=== PATIENT | male | born 1995 | race African-American/Black ===

== ENCOUNTER 2017-05-22 09:20 | Emergency (ER) | payer SELFPAY ==
[2017-05-22] MEDS ORDERED: Ondansetron INJ* 2 MG/ML VIAL IV ONE ×2 (09:43→11:18)
[2017-05-22] MEDS: NS 0.9% 1000 ML* 2,000 ML IV ONE ×2 (10:03→10:43)
[2017-05-22 11:30] VITALS: BP 132/80
--- NOTE | 2017-05-22 11:52 | UC ---
Renaldo Kumar Aidan, scribed for Bridger Boateng MD on 05/22/17 at 0959 . FLU HPI - HPI Summary HPI Summary: 21 y/o male presents to the Urgent Care with a complaint of acute, moderate episodes of vomiting with constant associated nausea. Episodes of vomiting began at 2100 last night. Other associated symptoms include severe (reported 10/ 10) episodes of diffuse abdominal pain, frequent episodes of diarrhea, rhinorrhea, and chills. Sitting up causes lightheadedness. He has been unable to eat regularly due to the nausea. Pt denies anyone else being sick at home. - History of Current Complaint Chief Complaint: UCAbdominalPain Stated Complaint: VOMITING Time Seen by Provider: 05/22/17 09:31 Hx Obtained From: Patient, Family/Charter Driver - sister Onset/Duration: Sudden Onset, Lasting Hours, Still Present Severity Currently: Moderate Severity Initially: Severe Pain Intensity: 10 Pain Scale Used: 0-10 Numeric Associated Signs & Symptoms: Positive: Nasal Congestion - runny nose, Vomiting, Diarrhea. Negative: Negative - abdominal pain, chills - Allergy/Home Medications Allergies/Adverse Reactions: Allergies Allergy/AdvReac Type Severity Reaction Status Date / Time No Known Allergies Allergy Verified 05/22/17 09:23 PMH/Surg Hx/FS Hx/Imm Hx - Surgical History Surgical History: None - Family History Known Family History: Positive: Hypertension - Social History Occupation: Unemployed Lives: With Family Alcohol Use: Occasionally Substance Use Type: Marijuana Smoking Status (MU): Never Smoked Tobacco Review of Systems Constitutional: Fever, Chills Skin: Negative Eyes: Negative ENT: Nasal Discharge - runny nose Respiratory: Negative Cardiovascular: Negative Gastrointestinal: Abdominal Pain, Vomiting, Diarrhea, Nausea Genitourinary: Negative Motor: Negative Neurovascular: Negative Musculoskeletal: Negative Neurological: Negative All Other Systems Reviewed And Are Negative: Yes Physical Exam Triage Information Reviewed: Yes Appearance: Ill-Appearing - niwx-pg-prdstemyly ill appearing Vital Signs: Initial Vital Signs Temp 99.3 F 05/22/17 09:26 Pulse 73 05/22/17 09:26 Resp 19 05/22/17 09:26 BP 135/78 05/22/17 09:26 Pulse Ox 99 05/22/17 09:26 Vital Signs Reviewed: Yes Eye Exam: Normal Eyes: Positive: Other: - PERRL, EOMI ENT Exam: Normal Neck exam: Normal Neck: Positive: Supple, Nontender Respiratory Exam: Normal Respiratory: Positive: Lungs clear - CTA, Other: - breath sounds present Cardiovascular Exam: Normal Cardiovascular: Positive: RRR Abdominal Exam: Normal Abdomen Description: Positive: Soft, Other: - no rebound. Negative: Nontender - mildd diffuse abdominal tenderness Bowel Sounds: Positive: Hypoactive Musculoskeletal Exam: Normal Musculoskeletal: Positive: Strength Intact, ROM Intact Neurological Exam: Normal Neurological: Positive: Alert Psychological Exam: Normal Psychological: Positive: Age Appropriate Behavior Skin Exam: Normal Re-Evaluation - Re-Evaluation First Eval Re-Evaluation Time: 11:01 - The patient was still feeling nauseated. He will be given more IV Zofran. Change: Unchanged Second Eval Re-Evaluation Time: 11:36 - After more Zofran, the patient claioms to be 90% better. On examination, he had some epigastric tenderness but no lower abdominal tenderness. Change: Improved Flu Course/Dx - Course Course Of Treatment: 21 y/o male presents with frequent episodes of vomiting and diarrhea that began at 2100 last night. Associated symptoms include chills, abdominal pain, nausea, and rhinorrhea. MEDICATIONS REVIEWED. IMPROVED IN ED AFTER 2 LITERS NS AND ZOFRAN 4MG X 2. NO FOCAL ABDOMINAL TENDERNESS/PERITONEAL SIGNS AT DISCHARGE REEVAL. PATIENT DECLINED TRANSFER TO ED,WISHES TO GO HOME. - Differential Dx/Diagnosis Provider Diagnoses: DEHYDRATION, NAUSEA AND VOMITING, ABDOMINAL PAIN Discharge - Discharge Plan Condition: Stable Disposition: HOME Prescriptions: Ondansetron ODT TAB* [Zofran 4 MG Odt TAB*] 4 mg PO Q6H PRN #10 tab.odt PRN Reason: Nausea Patient Education Materials: Dehydration (ED), Acute Nausea and Vomiting (ED), Abdominal Pain (ED) Referrals: [facility] [Outside] Additional Instructions: FOLLOW UP WITH YOUR DOCTOR. RETURN TO THE EMERGENCY DEPARTMENT FOR ANY WORSENING OF YOUR CONDITION; PAIN, FEVER, VOMITING, YOU FEEL ILL OR QUESTIONS OR CONCERNS. The documentation as recorded by the Renaldo quintanilla Aidan accurately reflects the service I personally performed and the decisions made by me, Bridger Boateng MD.
== END 2017-05-22 11:58 | disposition home or self-care (01) ==
LOC: UCEAST 09:20
DX: E86.0 Dehydration (principal); R11.2 Nausea with vomiting, unspecified; R10.84 Generalized abdominal pain
CPT/HCPCS: 96361; 96374; 96376; 99202; G0463; J2405

== ENCOUNTER 2017-05-22 17:00 | Emergency (ER) | payer SELFPAY ==
[2017-05-22] MEDS ORDERED: NS 0.9% 1000 ML* 1,000 ML IV ONE ×2 (17:05→18:56)
[2017-05-22] MEDS ORDERED: LORazepam INJ* 2 MG/ML 1 ML VIAL IV PUSH ONE (17:12)
[2017-05-22] MEDS ORDERED: Ondansetron INJ* 2 MG/ML VIAL IV ONE (17:12)
[2017-05-22] MEDS ORDERED: Al Hydrox/Mg Hydrox/Simet LIQ* 30 ML UDC PO ONE (17:13)
[2017-05-22] MEDS ORDERED: Lidocaine 2% VISCOUS* 15 ML UDC PO ONE (17:13)
[2017-05-22 17:48] LABS: Hematocrit 43 % (42-52); Hemoglobin 14.4 g/dl (14.0-18.0); Mean Corpuscular HGB Conc 33 g/dl (31-36); Mean Corpuscular Hemoglobin 31 pg (27-31); Mean Corpuscular Volume 92 fL (80-94); Mean Platelet Volume 9 um3 (7.4-10.4); Red Blood Count 4.68 10^6/ul (4.0-5.4); Red Cell Distribution Width 13 % (10.5-15); White Blood Count 14.5 10^3/ul (3.5-10.8)
[2017-05-22 18:03] LABS: Albumin 4.7 g/dL (3.2-5.2); BUN/Creatinine Ratio 11.5 (8-20); Calcium 9.8 mg/dL (8.6-10.3); EGFR African American 164.9 (>60); EGFR Non-African American 128.2 (>60); Globulin 3.2 g/dL (2-4); Total Bilirubin 0.8 mg/dL (0.2-1.0); Total Protein 7.9 g/dL (6.4-8.9)
[2017-05-22 18:06] LABS: Potassium 3.7 mmol/L (3.5-5.0)
[2017-05-22 19:28] LABS: Urine Bilirubin Negative (Negative); Urine Glucose Negative (Negative); Urine Nitrite Negative (Negative)
[2017-05-22] MEDS ORDERED: Ondansetron ODT TAB* 4 MG PO ONE (20:58)
[2017-05-22] MEDS ORDERED: Metoclopramide TAB* 10 MG PO ONE (21:04)
[2017-05-22] MEDS ORDERED: Metoclopramide IV* 5 MG/ML 2 ML VIAL IV SLOW PU ONE (21:09)
[2017-05-22] MEDS ORDERED: Metoclopramide IV* 5 MG/ML 2 ML VIAL ONE (21:10)
[2017-05-22 23:43] VITALS: BP 136/82
--- NOTE | 2017-06-03 23:29 | ED ---
Patricia Kuamr Rebecca, scribed for Jose Miguel Maria MD on 05/22/17 at 1710 . Abdominal Pain/Male - HPI Summary HPI Summary: Pt is a 21 y/o M BIBA who presents to ED c/o abd pain. Pain began last night and has been constant since onset. Pain is discrete to the epigastric region without radiation and currently severe. Sx aggravated and alleviated by nothing. He additionally c/o N/V/D. Diarrhea occurred last night and is currently resolved. Pt began vomiting last night at 2100. Denies dizziness and lightheadedness. He was evaluated by [facility] earlier today, during which the pt reports he received fluids and Zofran and was D/C after being advised to come to the ED via ambulance. At the time, the pt refused, went home and his vomiting restarted upon coming home. No recent sick contact. No PMHx abdominal problems such as IBS. - History of Current Complaint Chief Complaint: EDGeneral Stated Complaint: VOMITING Time Seen by Provider: 05/22/17 17:06 Hx Obtained From: Patient Onset/Duration: Sudden Onset, Still Present Timing: Constant Severity Currently: Severe Location: Epigastric Radiates: No Aggravating Factor(s): Nothing Alleviating Factor(s): Nothing Associated Signs And Symptoms: Positive: Nausea, Vomiting, Diarrhea, Other - Denies dizziness, lightheadedness - Allergies/Home Medications Allergies/Adverse Reactions: Allergies Allergy/AdvReac Type Severity Reaction Status Date / Time No Known Allergies Allergy Verified 05/22/17 09:23 PMH/Surg Hx/FS Hx/Imm Hx Previously Healthy: Yes Endocrine/Hematology History: Denies: Hx Diabetes GI History: Denies: Hx Irritable Bowel Infectious Disease History: Denies: Hx Clostridium Difficile, Hx Hepatitis, Hx Human Immunodeficiency Virus (HIV), Hx of Known/Suspected MRSA, Hx Shingles, Hx Tuberculosis, Hx Known/ Suspected VRE, Hx Known/Suspected VRSA, History Other Infectious Disease, Traveled Outside the [place] in Last 30 Days - Family History Known Family History: Positive: Hypertension - Social History Alcohol Use: Occasionally Substance Use Type: Reports: Marijuana Smoking Status (MU): Never Smoked Tobacco Review of Systems Negative: Fever, Chills Negative: Erythema Negative: Sore Throat Negative: Chest Pain Negative: Shortness Of Breath, Cough Positive: Abdominal Pain - epigastric, Vomiting, Diarrhea - last night - resolved, Nausea Negative: dysuria, hematuria Negative: Myalgia, Edema Negative: Rash Neurological: Other - Deniez dizziness and lightheadedness All Other Systems Reviewed And Are Negative: Yes Physical Exam - Summary Physical Exam Summary: Constitutional: Well-developed, Well-nourished, Alert, Retching. Skin: Warm, Dry HENT: Normocephalic; Atraumatic Eyes: Conjunctiva normal Neck: Musculoskeletal ROM normal neck. (-) JVD, (-) Stridor, (-) Tracheal deviation Cardio: Rhythm regular, rate normal, Heart sounds normal; Intact distal pulses; The pedal pulses are 2+ and symmetric. Radial pulses are 2+ and symmetric. (-) Murmur Pulmonary/Chest wall: Effort normal. (-) Respiratory distress, (-) Wheezes, (-) Rales Abd: Soft, (-) Distension, (-) Guarding, (-) Rebound. Epigastric tenderness. Musculoskeletal: (-) Edema Lymph: (-) Cervical adenopathy Neuro: Alert, Oriented x3 Psych: Mood and affect Normal Triage Information Reviewed: Yes Vital Signs Reviewed: Yes Diagnostics - Laboratory Result Diagrams: 05/22/17 17:39 05/22/17 17:39 Lab Statement: Any lab studies that have been ordered have been reviewed, and results considered in the medical decision making process. Re-Evaluation - Re-Evaluation First Eval Re-Evaluation Time: 18:45 Change: Improved Comment: Reports nausea and pain have resolved. Repeat abd exam indicates tenderness upon epigastric region w/o rebounding. Lower quadrants not tender to palpation. Hiccups have resolved. Pt has not provided urine sample yet, however girlfriend will assist with this when pt is awake. Another bag of saline ordered due to elevated HR. Pt is currently sleeping. Second Eval Re-Evaluation Time: 21:10 Change: Worse Comment: Gave PO challenge and the pt vomited. Will give him some PO Reglan. Abdomen is nontender. Third Eval Re-Evaluation Time: 23:15 Change: Improved Comment: Pt is able to tolerate PO with the Reglan having improved sx. Pt reports he does not have insurance and his girlfriend is taking care of it. Abdominal Pain Fem Course/Dx - Course Assessment/Plan: Pt is a 21 y/o M who presents to ED c/o constant, severe epigastric abd pain since last night. He additionally c/o N/V/D. Diarrhea occurred last night and is currently resolved. Pt began vomiting last night at 2100. Denies dizziness and lightheadedness. He was evaluated by [facility] earlier today, during which the pt reports he received fluids and zofran and was D/C after being advised to come to the ED via ambulance. At the time, the pt refused , went home and his vomiting restarted upon coming home. No recent sick contact. No PMHx abdominal problems such as IBS. Given his V/D, this is most likely gastroenteritis. He may require a secondary agent for antiemesis. Waiting on labs. WBC 14.5. Pt will be D/C to home with Dx of gastroenteritis with a follow up with PCP and Rx for Zofran and Reglan. Pt medications reviewed this visit. - Diagnoses Provider Diagnoses: Gastroenteritis Discharge - Discharge Plan Condition: Stable Disposition: HOME Prescriptions: Metoclopramide TAB* [Reglan TAB*] 10 mg PO Q8H #6 tab Ondansetron ODT TAB* [Zofran 4 MG Odt TAB*] 4 mg PO Q6H PRN #10 tab.odt PRN Reason: Nausea Patient Education Materials: Gastroenteritis (ED) Referrals: [facility] [place] [facility]FERR[facility] [Outside] - 3 Days Additional Instructions: RETURN TO THE EMERGENCY DEPARTMENT FOR CHANGING OR WORSENING SYMPTOMS The documentation as recorded by the Patricia quintanilla Rebecca accurately reflects the service I personally performed and the decisions made by , Jose Miguel Maria MD.
== END 2017-05-22 23:37 | disposition home or self-care (01) ==
LOC: ED 17:00
DX: K52.9 Noninfective gastroenteritis and colitis, unspecified (principal)
CPT/HCPCS: 36415; 80053; 81003; 83605; 83690; 85025; 96361; 96374; 96375; 99283; A9270-GY; J2060; J2405

== ENCOUNTER 2017-05-25 03:51 | Emergency (ER) | payer SELFPAY ==
[2017-05-25 04:00] VITALS: BP 119/90
[2017-05-25] MEDS ORDERED: chlorproMAZINE INJ* 25 MG/ML 2 ML (50 MG) IM ONE (04:07)
--- NOTE | 2017-05-25 04:36 | ED ---
Megan Kumar Thomas, scribed for Joseph Felipe MD on 05/25/17 at 0355 . Abdominal Pain/Male - HPI Summary HPI Summary: The pt is a 21 y/o M presenting to the ED c/o hiccups and abd pain that began 4 days ago. He rates his pain 7/10. He additionally c/o vomiting and CP secondary to hiccups. He was diagnosed with gastritis 4 days ago at [facility] and prescribed Zofran. He does not have a PCP. - History of Current Complaint Chief Complaint: EDAbdPain Stated Complaint: CHEST PAIN/SOB Hx Obtained From: Patient Onset/Duration: Lasting Days - 4 days ago Timing: Constant, Lasting Days - onset 4 days ago Severity Currently: Moderate Pain Intensity: 7 Pain Scale Used: 0-10 Numeric Aggravating Factor(s): Nothing Alleviating Factor(s): Nothing Associated Signs And Symptoms: Positive: Vomiting, Other - POS: CP secondary to hiccuping - Allergies/Home Medications Allergies/Adverse Reactions: Allergies Allergy/AdvReac Type Severity Reaction Status Date / Time No Known Allergies Allergy Verified 05/25/17 03:58 PMH/Surg Hx/FS Hx/Imm Hx Previously Healthy: Yes Cardiovascular History: Denies: Hx Myocardial Infarction Sensory History: Denies: Hx Legally Blind Infectious Disease History: Denies: Hx Clostridium Difficile, Hx Hepatitis, Hx Human Immunodeficiency Virus (HIV), Hx of Known/Suspected MRSA, Hx Shingles, Hx Tuberculosis, Hx Known/ Suspected VRE, Hx Known/Suspected VRSA, History Other Infectious Disease - Family History Known Family History: Positive: Hypertension - Social History Alcohol Use: Occasionally Substance Use Type: Reports: Marijuana Smoking Status (MU): Never Smoked Tobacco Review of Systems Constitutional: Negative Eyes: Negative ENT: Negative Positive: Chest Pain - secondary to hiccuping Positive: Other - POS: hiccups Positive: Abdominal Pain Genitourinary: Negative Musculoskeletal: Negative Skin: Negative Neurological: Negative Psychological: Normal All Other Systems Reviewed And Are Negative: Yes Physical Exam Triage Information Reviewed: Yes Vital Signs On Initial Exam: Initial Vitals Temp Pulse Resp BP Pulse Ox 98.7 F 109 18 119/90 100 05/25/17 03:53 05/25/17 03:53 05/25/17 03:53 05/25/17 03:53 05/25/17 03:53 Vital Signs Reviewed: Yes Appearance: Positive: No Pain Distress, Thin Skin: Positive: Warm Head/Face: Positive: Normal Head/Face Inspection Eyes: Positive: OLIVIA ENT: Positive: Hearing grossly normal Neck: Positive: Supple Respiratory/Lung Sounds: Positive: Breath Sounds Present Cardiovascular: Positive: RRR Abdomen Description: Positive: Nontender, Soft Bowel Sounds: Positive: Present Musculoskeletal: Positive: Strength/ROM Intact Neurological: Positive: Alert, Oriented to Person Place, Time Psychiatric: Positive: Affect/Mood Appropriate Diagnostics - Vital Signs Vital Signs Temp Pulse Resp BP Pulse Ox 05/25/17 03:53 98.7 F 109 18 119/90 100 - Laboratory Lab Statement: Any lab studies that have been ordered have been reviewed, and results considered in the medical decision making process. Re-Evaluation - Re-Evaluation Second Eval Re-Evaluation Time: 04:35 Change: Improved Abdominal Pain Fem Course/Dx - Diagnoses Provider Diagnoses: Hiccups Discharge - Discharge Plan Condition: Stable Disposition: HOME Patient Education Materials: Evacups (ED) Additional Instructions: Follow up with your primary care physician. The documentation as recorded by the Megan quintanilla Thomas accurately reflects the service I personally performed and the decisions made by Destinee sampson David, MD.
== END 2017-05-25 04:49 | disposition home or self-care (01) ==
LOC: ED 03:51
DX: R06.6 Hiccough (principal); R10.9 Unspecified abdominal pain; R11.10 Vomiting, unspecified; R07.9 Chest pain, unspecified
CPT/HCPCS: 96372; 99282

== ENCOUNTER 2017-05-25 05:57 | Emergency (ER) | payer SELFPAY ==
[2017-05-25] MEDS ORDERED: NS 0.9% 1000 ML*IV.FLUID IV ONE (06:48)
[2017-05-25] MEDS ORDERED: NS 0.9% 1000 ML* 1,000 ML IV ONE (06:48)
[2017-05-25 06:52] LABS: Hematocrit 44 % (42-52); Mean Corpuscular HGB Conc 34 g/dl (31-36); Mean Corpuscular Hemoglobin 31 pg (27-31); Mean Corpuscular Volume 90 fL (80-94); Mean Platelet Volume 8 um3 (7.4-10.4); Red Blood Count 4.84 10^6/ul (4.0-5.4); Red Cell Distribution Width 12 % (10.5-15); White Blood Count 8.8 10^3/ul (3.5-10.8)
[2017-05-25 07:13] LABS: Albumin 4.5 g/dL (3.2-5.2); BUN/Creatinine Ratio 20.5 (8-20); Calcium 9.4 mg/dL (8.6-10.3); EGFR African American 143.5 (>60); EGFR Non-African American 111.6 (>60); Globulin 3.1 g/dL (2-4); Magnesium 2.3 mg/dL (1.9-2.7); Total Bilirubin 1.5 mg/dL (0.2-1.0); Total Protein 7.6 g/dL (6.4-8.9)
[2017-05-25 07:16] LABS: Troponin I 0.03 ng/mL (<0.04)
[2017-05-25 07:30] LABS: Potassium 2.8 mmol/L (3.5-5.0)
[2017-05-25] MEDS ORDERED: KCL 20 MEQ/100 ML IVPREMIX* 20 MEQ/100 ML BAG IV ONE (07:32)
[2017-05-25 07:40] LABS: TSH (Thyroid Stimulating Horm) 0.57 mcIU/mL (0.34-5.60)
[2017-05-25] MEDS: NS 0.9% 1000 ML* 2,000 ML IV ONE ×2 (07:44→09:27)
[2017-05-25 07:45] LABS: Urine Bacteria Absent (Absent); Urine Bilirubin 1+ (Negative); Urine Glucose Negative (Negative); Urine Nitrite Negative (Negative)
--- NOTE | 2017-05-25 08:43 | RAD ---
INDICATION: Syncopal episode after exiting a taxi COMPARISON: None. TECHNIQUE: Contiguous axial sections of the brain were obtained from the skull base to the vertex without contrast. FINDINGS: The ventricles, cisterns and sulci are within normal limits. The barrera-white matter differentiation is adequately maintained and there is no sulcal effacement. No significant focal abnormality or mass effect is present. There is no evidence for intracranial hemorrhage. No significant focal osseous abnormality is present. There is mild mucosal thickening of the anterior ethmoid air cells. There is complete opacification of the left frontal sinus. The remaining visualized sinuses are clear. The mastoid air cells are well-aerated. IMPRESSION: 1. No CT evidence of acute traumatic intracranial injury. 2. Paranasal sinus mucosal disease as described above.
--- NOTE | 2017-05-25 11:31 | ED ---
Franca Kumar Alfonso, scribed for Bridger Boateng MD on 05/25/17 at 0722 . Syncope/Near Syncope - HPI Summary HPI Summary: This patient is a 21 y/o male BIBA to [facility] for syncope at 0530 today. He reports "I remember saying I was getting out the cab but not getting out of the cab," "I just fainted," and he is "feeling better now." The female accompanying the patient reports "he hit the right side of his head when he fell onto the concrete." Symptoms aggravated by recent illness and alleviated by spontaneous resolution. He reports LOC, N/V, dehydration, hiccupping, and dry mouth. He denies abdominal pain and headache. He was discharged from [facility] at approximately 0400 today with a provider diagnosis of hiccups. He was discharged from [facility] 3 days ago with a provider diagnosis of dehydration, N/V, and abdominal pain. - History Of Current Complaint Chief Complaint: EDSyncope Time Seen by Provider: 05/25/17 07:18 Hx Obtained From: Patient, Family/Data Collection Technician - A female Onset/Duration: Sudden Onset, Lasting Hours - 0530 today, Resolved Timing: Constant - One episode Context: Witnessed - By the female, Loss Of Consciousness Activity At Onset: Other - Getting out of a cab Associated Head Trauma: Yes Aggravating Factor(s): Other - Recent illness Alleviating Factor(s): Spontaneous Resolution Associated Signs And Symptoms: Head Trauma (Recent) - "he hit the right side of his head when he fell onto the concrete.", Vomiting, Other - Positive nausea, dehydration, hiccupping, and dry mouth - Allergies/Home Medications Allergies/Adverse Reactions: Allergies Allergy/AdvReac Type Severity Reaction Status Date / Time No Known Allergies Allergy Verified 05/25/17 03:58 PMH/Surg Hx/FS Hx/Imm Hx Cardiovascular History: Denies: Hx Myocardial Infarction Sensory History: Denies: Hx Legally Blind, Hx Deafness Opthamlomology History: Denies: Hx Legally Blind - Immunization History Date of Tetanus Vaccine: utd Date of Influenza Vaccine: none Infectious Disease History: Denies: Hx Clostridium Difficile, Hx Hepatitis, Hx Human Immunodeficiency Virus (HIV), Hx of Known/Suspected MRSA, Hx Shingles, Hx Tuberculosis, Hx Known/ Suspected VRE, Hx Known/Suspected VRSA, History Other Infectious Disease, Traveled Outside the [place] in Last 30 Days - Family History Known Family History: Positive: Hypertension - Social History Alcohol Use: Occasionally Substance Use Type: Reports: Marijuana Substance Use Comment - Amount & Last Used: 4 days ago Smoking Status (MU): Never Smoked Tobacco Review of Systems Positive: Other - Positive dehydration. Negative: Fever Positive: Other - Positive dry mouth and hiccupping Positive: Vomiting, Nausea. Negative: Abdominal Pain Neurological: Other - Positive LOC and "he hit the right side of his head when he fell onto the concrete." Positive: Syncope. Negative: Headache All Other Systems Reviewed And Are Negative: Yes Physical Exam Triage Information Reviewed: Yes Vital Signs On Initial Exam: Initial Vitals Temp Pulse Resp BP Pulse Ox 97.9 F 91 16 104/55 96 05/25/17 06:08 05/25/17 06:08 05/25/17 06:08 05/25/17 06:08 05/25/17 06:08 Vital Signs Reviewed: Yes Appearance: Positive: Well-Appearing, No Pain Distress Skin: Positive: Warm, Skin Color Reflects Adequate Perfusion, Dry Head/Face: Positive: Normal Head/Face Inspection Eyes: Positive: EOMI, OLIVIA ENT: Positive: Other - Dry oral mucosa Neck: Positive: Supple, Nontender Respiratory/Lung Sounds: Positive: Clear to Auscultation, Breath Sounds Present Cardiovascular: Positive: RRR Abdomen Description: Positive: Nontender, Soft Bowel Sounds: Positive: Present Musculoskeletal: Positive: Normal, Strength/ROM Intact Neurological: Positive: Normal, Sensory/Motor Intact, Alert, Oriented to Person Place, Time Psychiatric: Positive: Affect/Mood Appropriate - Kory Coma Scale Best Eye Response: 4 - Spontaneous Best Motor Response: 6 - Obeys Commands Best Verbal Response: 5 - Oriented Coma Scale Total: 15 Diagnostics - Vital Signs Vital Signs Temp Pulse Resp BP Pulse Ox 05/25/17 06:54 17 05/25/17 06:08 97.9 F 91 16 104/55 96 - Laboratory Lab Results: Lab Results 05/25/17 05/25/17 05/25/17 Range/Units 06:40 06:40 06:40 WBC 8.8 (3.5-10.8) 10^3/ul RBC 4.84 (4.0-5.4) 10^6/ul Hgb 15.0 (14.0-18.0) g/dl Hct 44 (42-52) % MCV 90 (80-94) fL MCH 31 (27-31) pg MCHC 34 (31-36) g/dl RDW 12 (10.5-15) % Plt Count 227 (150-450) 10^3/ul MPV 8 (7.4-10.4) um3 Neut % (Auto) 71.8 (38-83) % Lymph % (Auto) 14.8 L (25-47) % [place] % (Auto) 13.1 H (1-9) % Eos % (Auto) 0.1 (0-6) % Baso % (Auto) 0.2 (0-2) % Absolute Neuts (auto) 6.3 (1.5-7.7) 10^3/ul Absolute Lymphs (auto) 1.3 (1.0-4.8) 10^3/ul Absolute Monos (auto) 1.1 H (0-0.8) 10^3/ul Absolute Eos (auto) 0 (0-0.6) 10^3/ul Absolute Basos (auto) 0 (0-0.2) 10^3/ul Absolute Nucleated RBC 0.02 10^3/ul Nucleated RBC % 0.2 Sodium 132 L (133-145) mmol/L Potassium Pending Chloride 93 L (101-111) mmol/L Carbon Dioxide 30 (22-32) mmol/L Anion Gap Pending BUN 18 (6-24) mg/dL Creatinine 0.88 (0.67-1.17) mg/dL Est GFR ( Amer) 143.5 (>60) Est GFR (Non-Af Amer) 111.6 (>60) BUN/Creatinine Ratio 20.5 H (8-20) Glucose 104 H (70-100) mg/dL Lactic Acid 1.0 (0.5-2.0) mmol/L Calcium 9.4 (8.6-10.3) mg/dL Magnesium 2.3 (1.9-2.7) mg/dL Total Bilirubin 1.50 H (0.2-1.0) mg/dL AST 28 (13-39) U/L ALT 17 (7-52) U/L Alkaline Phosphatase 75 (34-104) U/L Troponin I 0.03 (<0.04) ng/mL Total Protein 7.6 (6.4-8.9) g/dL Albumin 4.5 (3.2-5.2) g/dL Globulin 3.1 (2-4) g/dL Albumin/Globulin Ratio 1.5 (1-3) TSH Pending Result Diagrams: 05/25/17 06:40 05/25/17 06:40 Lab Statement: Any lab studies that have been ordered have been reviewed, and results considered in the medical decision making process. - CT CT Brain CT Interpretation Completed By: Radiologist - 1. No CT evidence of acute traumatic intracranial injury. 2. Paranasal sinus mucosal disease as described above. - EKG 0621 Cardiac Rate: NL - BPM 85 EKG Rhythm: Sinus Rhythm ST Segment: Normal Ectopy: None EKG Interpretation: Baseline artifact in inferior leads Re-Evaluation - Re-Evaluation First Eval Re-Evaluation Time: 11:09 Comment: He was asleep when entering room. Discussed imaging and lab results with the pt. He reports he is hungry. Course/Dx Course Of Treatment: NO CRITICAL CARE TIME. IMPROVED IN ED. DISCUSSED RESULTS WITH PATIENT. DISCHARGE HOME STABLE. - Diagnoses Provider Diagnoses: Syncope, Dehydration, Head injury Discharge - Discharge Plan Condition: Stable Disposition: HOME Prescriptions: Ondansetron ODT TAB* [Zofran 4 MG Odt TAB*] 4 mg PO Q6H PRN #10 tab.odt PRN Reason: Nausea Patient Education Materials: Dehydration (ED), Syncope (ED), Head Injury (ED) Referrals: No Primary Care Phys,NOPCP [Primary Care Provider] - Additional Instructions: FOLLOW UP WITH YOUR DOCTOR. RETURN TO THE EMERGENCY DEPARTMENT FOR ANY WORSENING OF YOUR CONDITION OR QUESTIONS OR CONCERNS. The documentation as recorded by the Franca quintanilla Alfonso accurately reflects the service I personally performed and the decisions made by me, Bridger Boateng MD.
[2017-05-25 11:53] VITALS: BP 111/60
== END 2017-05-25 11:55 | disposition home or self-care (01) ==
LOC: ED 05:57
DX: R55 Syncope and collapse (principal); W19.XXXA Unspecified fall, initial encounter; R06.6 Hiccough; E86.0 Dehydration; R11.2 Nausea with vomiting, unspecified; S09.90XA Unspecified injury of head, initial encounter; Y93.9 Activity, unspecified; Y92.9 Unspecified place or not applicable
CPT/HCPCS: 36415; 70450; 80053; 81003; 81015; 83605; 83735; 84443; 84484; 85025; 93005; 99284; J3480